=== PATIENT | female | born 1965 | race African-American/Black ===

== ENCOUNTER 2017-11-24 18:19 | Emergency (ER) | payer OTHER ==
[~2017-11-24] VITALS: Ht 172.7 cm; Wt 88.8 kg
[~2017-11-24 18:19] MED LIST: ADVAIR 500/501 DISK IH; ALBUTEROL SULF8.5 GM IH; Advair 500/50 Diskus IH; Advair HFA 230/21 IH; CLARITIN,ALAVAR10 MG PO; DELTASONE20 M1 PO; DELTASONE50 MG PO; Heparin Sodium SC; LEVAQUIN750 MG PO; LIPITOR10 MG PO; Levaquin PO; MONTELUKAST SOD10 MG PO; MOTRIN800 MG PO; NAPROSYN500 MG PO; NAPROXEN500 MG PO; NORCO 5/3251 TABLET PO; PREDNISONE20 MG PO; PREDNISONE5 MG PO; PROTONIX40 MG PO; PROVENTIL HFA6.7 GM IH; PROVENTIL,2.5 MG/3 M IH; PULMICORT0.5 MG/21 AEROSOL; PriLOSEC PO; Robitussin AC,Tussi- PO; SINGULAIR10 MG PO; SPIRIVA1 INHALATI IH; Singulair PO; TAMIFLU75 MG PO; TYLENOL WITH C1 EACH PO; Tessalon Perle PO; Tylenol Regular Stre PO; VALIUM5 MG PO; VENTOLIN HFA18 GM IH; XOPENEX1.25 MG/0. IH; Zithromax PO; Zofran IV; predniSONE PO
[2017-11-24 19:02] LABS: HEMATOCRIT 34.6 % (36.0-46.0); HEMOGLOBIN 11.9 G/DL (11.9-15.5); MCH 29.3 PG (29.0-34.0); MCHC 34.4 G/DL (30.0-36.0); MCV 85.2 FL (83-99); PLATELET COUNT 269 K/uL (156-360); RBC DIS.WIDTH-CV 12.9 % (11.8-14.6); RBC DIS.WIDTH-SD 40.3 % (39-53); RED BLOOD COUNT 4.06 M/uL (3.80-5.20); WHITE BLOOD COUNT 8.3 K/uL (4.1-10.2)
[2017-11-24 19:11] LABS: CHLORIDE 105 mEq/L (99-109); POTASSIUM 3.9 mEq/L (3.7-5.4); SODIUM 137 mEq/L (136-147)
[2017-11-24 19:13] LABS: GLUCOSE 86 mg/dL (70-99)
[2017-11-24 19:16] LABS: CREATININE 1.1 mg/dL (0.6-1.3); GFR ESTIMATE (CALCULATED) > 59 mL/min/
[2017-11-24 19:17] LABS: UREA NITROGEN (BUN) 11 mg/dL (9-23)
[2017-11-24] MEDS ORDERED: PREDNISONE20 MG PO (20:51)
[2017-11-24] MEDS ORDERED: MUCINEX1200 MG PO (20:55)
[2017-11-24 21:01] VITALS: BP 127/96
== END 2017-11-24 21:12 | disposition home or self-care (01) ==
LOC: EME 18:19
DX: B34.9 Viral infection, unspecified (principal); J98.01 Acute bronchospasm; J44.9 Chronic obstructive pulmonary disease, unspecified; E78.5 Hyperlipidemia, unspecified; Z88.0 Allergy status to penicillin
CPT/HCPCS: 71020; 80048; 85027; 94640; 99281; 99284; J7512

== ENCOUNTER 2018-01-24 11:58 | Emergency (ER) | payer OTHER ==
[~2018-01-24] VITALS: Ht 175.3 cm; Wt 86.3 kg
[~2018-01-24 11:58] MED LIST changes: +MUCINEX1200 MG PO
[2018-01-24 13:09] LABS: BASOPHIL (%) 0.5 % (0-1); BASOPHIL COUNT 0.1 K/uL (0-0.1); EOSINOPHIL (%) 0.1 % (0-5); HEMATOCRIT 33.2 % (36.0-46.0); HEMOGLOBIN 11.4 G/DL (11.9-15.5); IMMATURE GRANULOCYTE (%) 0.3 % (0.0-0.7); LYMPHOCYTE (%) 34.8 % (15-42); LYMPHOCYTE COUNT 3.4 K/uL (1.0-2.8); MCH 29.6 PG (29.0-34.0); MCHC 34.3 G/DL (30.0-36.0); MCV 86.2 FL (83-99); MONOCYTE (%) 9.9 % (3-12); NEUTROPHIL (%) 54.4 % (45-76); NEUTROPHIL COUNT 5.3 K/uL (1.8-6.4); PLATELET COUNT 256 K/uL (156-360); RBC DIS.WIDTH-CV 14.2 % (11.8-14.6); RBC DIS.WIDTH-SD 44.8 % (39-53); RED BLOOD COUNT 3.85 M/uL (3.80-5.20); WHITE BLOOD COUNT 9.8 K/uL (4.1-10.2)
[2018-01-24 13:17] LABS: CHLORIDE 108 mEq/L (99-109)
[2018-01-24 13:18] LABS: POTASSIUM 3.5 mEq/L (3.7-5.4); SODIUM 140 mEq/L (136-147)
[2018-01-24 13:19] LABS: GLUCOSE 101 mg/dL (70-99); PTT 26.3 SEC (25-37)
[2018-01-24 13:23] LABS: CREATININE 1.1 mg/dL (0.6-1.3); GFR ESTIMATE (CALCULATED) > 59 mL/min/
[2018-01-24 13:24] LABS: UREA NITROGEN (BUN) 14 mg/dL (9-23)
[2018-01-24 13:29] LABS: TROP-I INTERPRETATION NEGATIVE; TROPONIN-I < 0.01 ng/mL (0.0-0.30)
[2018-01-24] MEDS ORDERED: ZITHROMAX Z-PA250 MG PO (13:59)
[2018-01-24] MEDS ORDERED: PREDNISONE50 MG PO (13:59)
[2018-01-24 14:33] VITALS: BP 124/62
== END 2018-01-24 14:33 | disposition home or self-care (01) ==
LOC: EME 11:58
PROVIDERS: Emergency Medicine
DX: J44.1 Chronic obstructive pulmonary disease with (acute) exacerbation (principal); E78.5 Hyperlipidemia, unspecified; Z88.0 Allergy status to penicillin
CPT/HCPCS: 71045; 80048; 83880; 84484; 85025; 85610; 85730; 94640; 99281; 99284; J2930